=== PATIENT | female | born 1935 | race Caucasian/White ===

== ENCOUNTER 2024-03-11 14:23 | Outpatient (RCR) | payer OTHER, SELFPAY | END 2024-03-11 23:59 | disposition home or self-care (01) | LOC: RPT 14:23 | PROVIDERS: ATTENDING PHYSICIAN Internal Medicine | DX: I89.0 Lymphedema, not elsewhere classified (principal); Z73.6 Limitation of activities due to disability; R26.89 Other abnormalities of gait and mobility | CPT/HCPCS: 97140; 97163; 97530; 97535 ==

== ENCOUNTER 2024-04-12 13:55 | Outpatient (RCR) | payer OTHER, SELFPAY | END 2024-04-12 23:59 | disposition home or self-care (01) | LOC: RPT 13:55 | PROVIDERS: ATTENDING PHYSICIAN Internal Medicine | DX: I89.0 Lymphedema, not elsewhere classified (principal); Z73.6 Limitation of activities due to disability; R26.89 Other abnormalities of gait and mobility | CPT/HCPCS: 97110; 97140; 97530; 97535; 97763 ==

== ENCOUNTER 2024-04-20 14:03 | Outpatient (RCR) | payer OTHER, SELFPAY | END 2024-04-20 23:59 | disposition home or self-care (01) | LOC: RPT 14:03 | PROVIDERS: ATTENDING PHYSICIAN Internal Medicine | DX: I89.0 Lymphedema, not elsewhere classified (principal); Z73.6 Limitation of activities due to disability; R26.89 Other abnormalities of gait and mobility | CPT/HCPCS: 97110; 97140; 97530; 97535 ==

== ENCOUNTER 2024-08-30 11:56 | Emergency (ER) | payer OTHER, SELFPAY ==
[2024-08-30 12:03] VITALS: BP 136/69
[2024-08-30 12:18] LABS: % Basophils 0.6 % (0-2); % Eosinophils 1.5 % (0-6); % Immature Granulocytes 0.4 % (0-0.5); % Lymphocytes 27.5 % (20.5-51.1); % Monocytes 7.8 % (1.7-9.3); % Neutrophils 62.2 % (42.2-75.2); Absolute Basophils 0.1 10^3/uL (0-0.2); Absolute Eosinophils 0.1 10^3/uL (0-0.7); Absolute Lymphocytes 2.3 10^3/uL (1.2-3.4); Absolute Monocytes 0.6 10^3/uL (0.1-0.6); Absolute Neutrophils 5.1 10^3/uL (1.4-6.5); Hematocrit 38.5 % (37.0-47.0); Hemoglobin 12.8 g/dL (12.0-16.0); Mean Corp Hgb Conc. 33.2 g/dL (33.0-37.0); Mean Corpuscular Hgb 28.9 pg (27.0-31.0); Mean Corpuscular Volume 86.9 fL (81.0-99.0); Mean Platelet Volume 8.8 fL (7.4-10.4); Nucleated Red Blood Cells % 0 %; Platelet Count 286 10^3/uL (130-400); Red Blood Cell Count 4.43 10^6/uL (4.20-5.40); Red Cell Dist. Width 13.8 % (11.5-14.5); White Blood Cell Count 8.2 10^3/uL (4.8-10.8)
[2024-08-30 12:38] LABS: ALT (SGPT) 24 U/L (0-35); AST (SGOT) 28 U/L (14-36); Albumin 4.3 g/dl (3.5-5.0); Alkaline Phosphatase 95 U/L (38-126); Blood Urea Nitrogen 20 mg/dl (7-17); Calcium 9.2 mg/dl (8.4-10.2); Carbon Dioxide 22 mmol/L (22-30); Chloride 107 mmol/L (98-107); Glucose 95 mg/dl (70-99); Lipase 200 U/L (23-300); Potassium 3.8 mmol/L (3.5-5.1); Sodium 139 mmol/L (135-145); Total Bilirubin 0.9 mg/dl (0.2-1.3); Total Protein 6.6 g/dl (6.3-8.2); eGFR > 60.00
[2024-08-30 13:44] VITALS: BP 123/58
--- NOTE | 2024-08-30 15:06 | ED.GENMED ---
History of Present Illness
<Viktor Pryor DO - Last Filed: 08/30/24 20:11>
General
Chief Complaint: Abdominal Symptoms
Source: patient
Exam Limitations: none
Time Seen by Provider: 08/30/24 16:02
History of Present Illness
History of Present Illness:
See MDM
Past History
<EVAN Catalan - Last Filed: >
Past History
ED Past Medical History: Other (osteoporosis)
ED Past Surgical History: Appendectomy, Gynecological (TERESA w/ right inguinal lymphectomy) and Tonsilectomy
Patient has exhibited threatening behavior?: No
Social History
Personal:
Living: with family
Employment: Retired
Phy Exam
<Viktor Pryor DO - Last Filed: 08/30/24 20:11>
Physical Exam
Physical Exam:
See MDM
Course
<Viktor Pryor DO - Last Filed: 08/30/24 20:11>
Orders/Labs/Results
Orders:
Orders
08/30/24 12:10
Comprehensive Metabolic Panel Urgent
Lipase Urgent
08/30/24 12:11
Complete Blood Count/With Diff Urgent
08/30/24 16:59
CT Abd/pelvis W Iv Cont Urgent
Comment:
Reason For Exam: upper abd pain, diarrhea
0.9% Sodium Chloride 1000 ml [Nss] 1,000 ml IV BOLUS
Abnormal Lab Results
08/30/24
12:10
BUN 20 H mg/dl
(03-30)
08/30/24 12:11
08/30/24 12:10
Vital Signs
Initial and Last Documented VS:
Initial Vital Signs
Temp Pulse Resp BP Pulse Ox
97.7 F 75 18 136/69 99
08/30/24 12:03 08/30/24 12:03 08/30/24 12:03 08/30/24 12:03 08/30/24 12:03
Last Documented Vital Signs
Temp Pulse Resp BP Pulse Ox
98.2 F 66 16 130/62 100
08/30/24 13:44 08/30/24 13:44 08/30/24 13:44 08/30/24 16:54 08/30/24 16:54
<EVAN Catalan - Last Filed: >
Orders/Labs/Results
Orders:
Orders
08/30/24 12:10
Comprehensive Metabolic Panel Urgent
Lipase Urgent
08/30/24 12:11
Complete Blood Count/With Diff Urgent
08/30/24 16:59
CT Abd/pelvis W Iv Cont Urgent
Comment:
Reason For Exam: upper abd pain, diarrhea
0.9% Sodium Chloride 1000 ml [Nss] 1,000 ml IV BOLUS
Abnormal Lab Results
08/30/24
12:10
BUN 20 H mg/dl
(03-30)
08/30/24 12:11
08/30/24 12:10
Vital Signs
Initial and Last Documented VS:
Initial Vital Signs
Temp Pulse Resp BP Pulse Ox
97.7 F 75 18 136/69 99
08/30/24 12:03 08/30/24 12:03 08/30/24 12:03 08/30/24 12:03 08/30/24 12:03
Last Documented Vital Signs
Temp Pulse Resp BP Pulse Ox
98.2 F 66 16 130/62 100
08/30/24 13:44 08/30/24 13:44 08/30/24 13:44 08/30/24 16:54 08/30/24 16:54
<Viktor Pryor DO - Last Filed: 08/30/24 20:11>
MDM/Problems Addressed
Differential Diagnosis Includes:
HPI and MDM Narrative:
88-year-old female presenting for evaluation of abdominal pain, nausea and diarrhea. Patient states she feels dehydrated. She has had several episodes of diarrhea since last night into today. She called her PCP and was sent in for IV fluids.
Patient states she has not urinated in several hours. She recently finished a course of doxycycline about 1 week ago. She denies sick contact
On exam, she does appear dry. She does have mid abdominal tenderness. If she can supply a stool sample, will send for C. difficile studies. However, given normal white blood cell and no diarrhea since this morning, doubt C. difficile.
Will give liter of IV fluids and obtain CT abdomen/pelvis. She denies chest pain or short and her symptoms are not worse with exertion making ACS less likely
Physical exam
General: Well appearing and non-toxic
HEENT: protecting airway. Dry Mucous membranes
Neck: appears supple
CV: No evidence of cyanosis
Resp: No accessory muscle use
Abd: Non-distended. Mild mid tenderness
Extremities: No deformities
Neuro: alert
Psych: Normal affect
Skin: Intact
Problems Addressed including Acute and Chronic Conditions affecting care:
1. Abdominal pain and diarrhea
Acuity: acute
Prognosis: stable
Details: Likely gastroenteritis. Given age and complaint, will obtain CT abdomen/pelvis. If she can supply stool sample, will send for C. difficile
2. Dehydration
Acuity: acute
Prognosis: stable
Details: Electrolytes within normal limits. Will give IV fluids
Updates
8:10 PM patient feeling better after fluids. CT negative for acute pathology. She feels comfortable going home
Differential Diagnosis (but not limited to): Gastroenteritis, C. difficile, colitis
Testing considered: Urinalysis but she denies symptoms
Drug therapy (if applicable): OTC meds, please see d/c instruction regarding Rx drugs
Amount and/or Complexity of Data Reviewed
Clinical info obtained from: Patient
External data reviewed: N/A
Labs I independently reviewed (but not limited to): BUN mildly elevated
Radiology: The CT scan was personally and independently reviewed. In addition, official CT report reviewed.
Pulse Ox: not hypoxic
EKG independently reviewed: N/A
Manager Mechanical: N/A
Critical Care: N/A
Risk of Complication:
Social Determinants of health: Good social support
Discussed with other providers: N/A
Escalation of Care includes Admit/Obs: After being observed in the Emergency Department, pt stable for discharge.
Occasional wrong word or 'sound a like' substitutions may have occurred due to the inherent limitations of voice recognition software. Read the chart carefully and recognize, using context, where substitutions have occurred.
<Viktor Pryor DO - Last Filed: 08/30/24 20:11>
*Critical Care Note
Total Time (30-74mins, 75-104mins- exclusive of procedures): Not Applicable
ED Attending Note
<EVAN Catalan - Last Filed: >
-
Portions of this chart may have been created with voice recognition software.� Occasional wrong word or��sound alike� substitutions may have occurred due to the inherent limitations of voice recognition software.
Discharge Plan
Departure
Patient Disposition: Home (Routine Discharge)
Date of Disposition: 08/30/24
Time of Disposition: 20:11
Patient with high blood pressure during this ER visit?: No
Discharge Problem:
Gastroenteritis
Instructions: Viral gastroenteritis in adults
Prescriptions:
No Action
multivitamin [One-A-Day Essential] 1 EACH tablet
1 ea PO DAILY
aspirin 81 MG tablet,delayed release (DR/EC)
81 mg PO DAILY
vit B [id number]-iron-vit E [Vitamins B Complex] 1 EACH tablet
1 ea PO DAILY
Calcium
1 tab PO DAILY
Vitamin C:
1 tab PO DAILY
oxycodone-acetaminophen 5 MG/325 MG tablet
1 tab PO Q4HPRN PRN (Reason: moderate/severe pain) Qty: 20 0RF
cephalexin 500 MG capsule
500 mg PO QID Qty: 40 0RF
Rx Instructions:
Take for 10 days
Referrals:
UNKNOWN - PT NOT,INTERVIEWE [Family Provider] -
Activity Restrictions/Additional Instructions:
Please return for any worsening symptoms.
You may return at any time if you have further concerns.
Please follow up with your doctor at the first available appointment, preferably this week.
Thank you for choosing [facility].
Interventions
Interventions:
*Risk Screen - Suicide Last Done: 08/30/24 12:03
*General Assessment Last Done: 08/30/24 12:03
*Neglect/Abuse Screening Last Done: 08/30/24 12:03
ED- Fall Risk Assessment Last Done: 08/30/24 16:10
*ED COVID-19 Vaccine History Last Done: 08/30/24 12:03
CS-Gkhcsn-Naedkwkayz Assessment Last Done: 08/30/24 16:10
Discharge Date and Time
Print Language: [place]
[2024-08-30 16:54] VITALS: BP 130/62
[2024-08-30] MEDS: NSS 1000 IV (17:36)
== END 2024-08-30 20:25 | disposition home or self-care (01) ==
LOC: EMR 11:56
PROVIDERS: Emergency Medicine; EMERGENCY PHYSICIAN Student in an Organized Health Care Education/Training Program
DX: K52.9 Noninfective gastroenteritis and colitis, unspecified (principal); E86.0 Dehydration; Z90.49 Acquired absence of other specified parts of digestive tract; Z90.710 Acquired absence of both cervix and uterus
CPT/HCPCS: 96360; 99284; 74177; 80053; 83690; 85025; Q9967

== ENCOUNTER 2024-09-01 09:20 | Outpatient (RCR) | payer OTHER, SELFPAY | END 2024-09-01 23:59 | disposition home or self-care (01) | LOC: RPT 09:20 | PROVIDERS: ATTENDING PHYSICIAN Internal Medicine | DX: I89.0 Lymphedema, not elsewhere classified (principal) | CPT/HCPCS: 97162; 97530 ==

== ENCOUNTER 2024-10-11 15:04 | Outpatient (RCR) | payer OTHER, SELFPAY | END 2024-10-11 23:59 | disposition home or self-care (01) | LOC: RPT 15:04 | PROVIDERS: ATTENDING PHYSICIAN Internal Medicine | DX: I89.0 Lymphedema, not elsewhere classified (principal); Z73.6 Limitation of activities due to disability | CPT/HCPCS: 97110; 97140; 97530 ==

== ENCOUNTER 2024-11-03 16:00 | Outpatient (RCR) | payer OTHER, SELFPAY | END 2024-11-03 23:59 | disposition home or self-care (01) | LOC: RPT 16:00 | PROVIDERS: ATTENDING PHYSICIAN Internal Medicine | DX: I89.0 Lymphedema, not elsewhere classified (principal); Z73.6 Limitation of activities due to disability | CPT/HCPCS: 97110; 97140 ==

== ENCOUNTER 2024-11-15 13:32 | Outpatient (RCR) | payer OTHER, SELFPAY | END 2024-11-15 23:59 | disposition home or self-care (01) | LOC: RPT 13:32 | PROVIDERS: ATTENDING PHYSICIAN Internal Medicine | DX: I89.0 Lymphedema, not elsewhere classified (principal); Z73.6 Limitation of activities due to disability | CPT/HCPCS: 97140 ==

== ENCOUNTER 2025-01-24 15:05 | Outpatient (RCR) | payer OTHER, SELFPAY | END 2025-01-24 23:59 | disposition home or self-care (01) | LOC: RPT 15:05 | PROVIDERS: ATTENDING PHYSICIAN Internal Medicine | DX: I89.0 Lymphedema, not elsewhere classified (principal); Z73.6 Limitation of activities due to disability | CPT/HCPCS: 97110; 97140 ==